=== PATIENT | male | born 1980 | race Caucasian/White ===

== ENCOUNTER 2018-06-14 14:30 | Inpatient (IN) | payer MEDICAID ==
[~2018-06-14] VITALS: Ht 188 cm; Wt 63.4 kg
[2018-06-14] MEDS ORDERED: ACETAMINOPHEN 325 MG TABLET PO ONE (15:45)
[2018-06-14 16:11] LABS: APPEARANCE,URINE CLEAR (CLEAR); BILIRUBIN,URINE NEGATIVE (NEGATIVE); GLUCOSE, URINE (UA) NEGATIVE (NEGATIVE); KETONES,URINE NEGATIVE (NEGATIVE); LEUKOCYTE ESTERASE ,URINE NEGATIVE (NEGATIVE); NITRATE,URINE NEGATIVE (NEGATIVE); OCCULT BLOOD,URINE SMALL (NEGATIVE); PH,URINE 5.5 (5.0-8.0); PROTEIN,URINE NEGATIVE (NEGATIVE); UROBILINOGEN,URINE 0.2 mg/dL (<=1.0)
[2018-06-14 16:16] LABS: AMPHET/METH SCREEN,URINE POSITIVE (NEGATIVE); BARBITURATE SCREEN, URINE NEGATIVE (NEGATIVE); BENZODIAZEPINES SCREEN,URINE NEGATIVE (NEGATIVE); CANNABINOID SCREEN,URINE NEGATIVE (NEGATIVE); COCAINE SCREEN,URINE NEGATIVE (NEGATIVE); METHADONE SCREEN, URINE NEGATIVE (NEGATIVE); OPIATE SCREEN,URINE NEGATIVE (NEGATIVE); PHENCYCLIDINE SCREEN,URINE NEGATIVE (NEGATIVE)
[2018-06-14 16:30] LABS: AMORPHOUS SEDIMENT,UR Moderate /LPF (None Seen); BACTERIA,URINE None Seen /HPF (None Seen)
[2018-06-14 16:31] LABS: SQUAMOUS EPITHELIAL CELL,UR Moderate /LPF (None Seen)
[2018-06-14 16:32] LABS: RBC,URINE 0-2 /HPF (0-2)
[2018-06-14] MEDS ORDERED: HALOPERIDOL 5 MG TABLET PO PRN (16:45)
[2018-06-14] MEDS: LORazepam 2 MG TABLET PO PRN (20:13)
[2018-06-14] MEDS ORDERED: MAG HYDROX/AL HYDROX/SIMETH ES 30 ML SUSPENSION UDCUP PO PRN (20:30)
[2018-06-14] MEDS ORDERED: PETROLATUM,WHITE 71 GM JELLY TP PRN (20:30)
[2018-06-14] MEDS ORDERED: ACETAMINOPHEN 325 MG TABLET PO PRN (20:30)
[2018-06-14] MEDS ORDERED: IBUPROFEN 400 MG TABLET PO PRN (20:30)
[2018-06-14] MEDS ORDERED: LOPERAMIDE HCL 2 MG CAPSULE PO PRN (20:30)
[2018-06-14] MEDS ORDERED: ALBUTEROL SULFATE HFA 90 MCG/PUFF 8 GM INHALER IH PRN (20:30)
[2018-06-14] MEDS ORDERED: DOCUSATE SODIUM 100 MG CAPSULE PO PRN (20:30)
[2018-06-14] MEDS ORDERED: CloNIDine HCL 0.1 MG TABLET PO PRN (20:30)
[2018-06-14] MEDS ORDERED: MAGNESIUM HYDROXIDE SUSPENSION 30 ML UDCUP PO PRN (20:30)
[2018-06-14] MEDS ORDERED: ONDANSETRON HCL 4 MG TABLET PO PRN (20:30)
[2018-06-14] MEDS ORDERED: GuaiFENesin/D-METHORPHAN [SUGAR-FREE] 200-20MG/10 ML SYRUP UDCUP PO PRN (20:30)
[2018-06-14 22:29] VITALS: BP 121/80
[2018-06-15 05:01] VITALS: BP 116/84
[2018-06-15 09:18] VITALS: BP 110/70
[2018-06-15] MEDS: NICOTINE 14 MG/24 HOUR PATCH TD SCH (09:36)
[2018-06-15 16:00] VITALS: BP 104/56
[2018-06-15 20:00] VITALS: BP 130/72
[2018-06-15] MEDS: LORazepam 2 MG TABLET PO PRN (20:05)
[2018-06-15] MEDS ORDERED: MIRTAZAPINE 15 MG TABLET PO SCH (21:00)
[2018-06-16 04:00] VITALS: BP 127/75
[2018-06-16] MEDS: NICOTINE 14 MG/24 HOUR PATCH TD SCH (08:32)
[2018-06-16 08:58] VITALS: BP 113/65
[2018-06-16] MEDS ORDERED: ARIPiprazole 5 MG TABLET PO SCH (09:00)
[2018-06-16] MEDS: LORazepam 2 MG TABLET PO PRN (10:53)
[2018-06-16 16:00] VITALS: BP 102/69
[2018-06-16] MEDS ORDERED: MIRTAZAPINE 30 MG TABLET PO SCH (21:00)
[2018-06-17 01:10] VITALS: BP 122/68
[2018-06-17] MEDS: ZOLPIDEM TARTRATE 10 MG TABLET PO PRN ×2 (01:15→21:33)
[2018-06-17 08:37] VITALS: BP 113/68
[2018-06-17 08:50] LABS: BASOPHILS % (AUTO) 0.9 % (0.0-2.0); EOSINOPHILS % (AUTO) 1.4 % (1.0-6.0); HEMATOCRIT 43.7 % (41-53); HEMOGLOBIN 15.4 g/dL (13.5-17.5); LYMPHOCYTES # (AUTO) 1.3 K/uL (1.0-4.8); LYMPHOCYTES % (AUTO) 17.8 % (22.0-44.0); MEAN CORPUSCULAR HEMOGLOBIN 31.3 pg (26.0-34.0); MEAN CORPUSCULAR HGB CONC 35.1 G/dL (31.0-37.0); MEAN CORPUSCULAR VOLUME 89 fL (80-100); MONOCYTES # (AUTO) 0.6 K/uL (0.1-1.0); MONOCYTES % (AUTO) 8.1 % (2.0-9.0); NEUTROPHILS # (AUTO) 5.2 K/uL (1.8-7.7); NEUTROPHILS % (AUTO) 71.8 % (40.0-70.0); PLATELET COUNT (AUTO) 229 K/uL (150-450); RED BLOOD CELL COUNT(AUTO) 4.91 MIL/uL (4.50-5.90); RED CELL DISTRIBUTION WIDTH 14.6 % (11.5-14.5)
[2018-06-17] MEDS: NICOTINE 14 MG/24 HOUR PATCH TD SCH (09:38)
[2018-06-17] MEDS: ARIPiprazole 10 MG TABLET PO SCH (09:38)
[2018-06-17 09:46] LABS: ALANINE AMINOTRANSFERASE 83 U/L (12-78); ALBUMIN 3.6 g/dL (3.4-5.0); ALKALINE PHOSPHATASE 67 U/L (46-116); ANION GAP 8 mmol/L (8-16); ASPARTATE AMINOTRANSFERASE 44 U/L (15-37); BILIRUBIN,TOTAL 0.4 mg/dL (0.1-1.0); CALCIUM, TOTAL 8.7 mg/dL (8.8-10.5); CARBON DIOXIDE 29 mmol/L (22-29); CHLORIDE 100 mmol/L (98-107); CHOL/HDL RATIO 3.1 (4.2-7.3); CHOLESTEROL 115 mg/dL (131-200); CREATININE 0.98 mg/dL (0.60-1.30); FREE T4 (FREE THYROXINE) 0.85 ng/dL (0.76-1.46); GLOMERULAR FILTR. RATE CALC > 60 mL/min (>60); GLUCOSE,RANDOM 74 mg/dL (70-110); HDL CHOLESTEROL 37 mg/dL (40-60); LDL CHOL (CALC.) 55 mg/dL (0-130); POTASSIUM 4.7 mmol/L (3.5-5.1); SODIUM SERUM 137 mmol/L (136-145); THYROID STIMULATING HORMONE 1.14 uIU/mL (0.36-3.74); TOTAL PROTEIN, SERUM 7.7 g/dL (6.4-8.2); TRIGLYCERIDES 115 mg/dL (15-150); UREA NITROGEN, BLOOD 20 mg/dL (7-18)
[2018-06-17] MEDS: LORazepam 2 MG TABLET PO PRN (13:54)
[2018-06-17 16:00] VITALS: BP 122/85
[2018-06-17] MEDS: MIRTAZAPINE 15 MG TABLET PO SCH (21:05)
[2018-06-18 06:37] VITALS: BP 118/78
[2018-06-18] MEDS: ARIPiprazole 10 MG TABLET PO SCH (08:30)
[2018-06-18] MEDS: NICOTINE 14 MG/24 HOUR PATCH TD SCH (08:31)
[2018-06-18 08:35] VITALS: BP 121/82
[2018-06-18] MEDS: LORazepam 2 MG TABLET PO PRN (08:43)
[2018-06-18 16:51] VITALS: BP 105/61
[2018-06-18] MEDS: MIRTAZAPINE 15 MG TABLET PO SCH (20:53)
[2018-06-18] MEDS: ZOLPIDEM TARTRATE 10 MG TABLET PO PRN (20:53)
[2018-06-19 06:00] VITALS: BP 116/82
[2018-06-19] MEDS: LORazepam 2 MG TABLET PO PRN ×2 (08:54→20:03)
[2018-06-19] MEDS: ARIPiprazole 10 MG TABLET PO SCH (08:54)
[2018-06-19] MEDS: NICOTINE 14 MG/24 HOUR PATCH TD SCH (08:55)
[2018-06-19 09:06] VITALS: BP 108/63
[2018-06-19 16:17] VITALS: BP 107/71
[2018-06-19] MEDS: MIRTAZAPINE 15 MG TABLET PO SCH (20:03)
[2018-06-19] MEDS: ZOLPIDEM TARTRATE 10 MG TABLET PO PRN (20:04)
[2018-06-19] MEDS ORDERED: ARIP10TA8 PO (23:16)
[2018-06-19] MEDS ORDERED: MIRT15 PO (23:16)
[2018-06-20] VITALS: BP 104/68
[2018-06-20] MEDS ORDERED: MULTIVITAMINS WITH MINERALS, THERAPEUTIC TABLET PO SCH (09:00)
[2018-06-20] MEDS: NICOTINE 14 MG/24 HOUR PATCH TD SCH (09:56)
[2018-06-20] MEDS: ARIPiprazole 10 MG TABLET PO SCH (09:56)
== END 2018-06-20 13:20 | disposition home or self-care (01) | DRG 750 ==
LOC: EMS 14:32 → B2S 17:20
PROVIDERS: ADMIT Psychiatry & Neurology Psychiatry; ATTEND Psychiatry & Neurology Psychiatry
DX: F25.1 Schizoaffective disorder, depressive type (principal); R45.851 Suicidal ideations; Z91.19 Patient's noncompliance with other medical treatment and regimen; R45.87 Impulsiveness; R45.84 Anhedonia; F19.90 Other psychoactive substance use, unspecified, uncomplicated; F41.9 Anxiety disorder, unspecified; G47.00 Insomnia, unspecified; G89.29 Other chronic pain; K59.00 Constipation, unspecified
CPT/HCPCS: 83036; 84436; 84439; 84443